=== PATIENT | male | born 1980 | race Caucasian/White ===

== ENCOUNTER 2019-09-23 18:25 | Emergency (ER) | payer SELFPAY ==
[2019-09-23] MEDS ORDERED: Ketorolac Tromethamine 30 MG/ML VIAL ONE (18:52)
[2019-09-23 19:12] LABS: ALT (SGPT) 31 U/L (8-55); AST (SGOT) 29 U/L (5-34); Acetaminophen Less than 6.0 mcg/mL (10.0-30.0); Albumin 4.7 g/dL (3.5-5.0); Alcohol 211 mg/dL (Less than 10); Alkaline Phosphatase 80 U/L (40-110); Anion Gap 18 mmol/L (10-20); BUN (Urea Nitrogen) 7 mg/dL (8.9-20.6); Bilirubin, Total 0.4 mg/dL (0.2-1.2); Calc. Creatinine Clearance 0 mL/min (70-130); Calcium 9.3 mg/dL (7.8-10.44); Carbon Dioxide 22 mmol/L (22-29); Chloride 109 mmol/L (98-107); Estimated GFR-MDRD 74; Globulin 2.8 g/dL (2.4-3.5); Glucose 98 mg/dL (70-105); Potassium 4.1 mmol/L (3.5-5.1); Protein, Total 7.5 g/dL (6.0-8.3); Salicylate Less than 8.0 mg/dL (15.0-30.0); Sodium 145 mmol/L (136-145)
[2019-09-23 19:17] LABS: #Basophils 0.1 thou/uL (0.0-0.2); #Eosinphils 0.3 thou/uL (0.0-0.7); #Lymphocytes 1.7 thou/uL (1.20-3.40); #Monocytes 0.5 thou/uL (0.11-0.59); #Neutrophils 2.3 thou/uL (1.40-6.50); %Basophils 1.9 % (0.0-1.0); %Eosinophils 5.9 % (0.0-10.0); %Monocytes 10.9 % (0.0-10.0); %Neutrophils 47.3 % (42.0-75.0); Hemoglobin 17.4 g/dL (14.0-18.0); Mean Corpuscular HGB CONC 33.8 g/dL (32.0-36.0); Mean Corpuscular Volume 97.9 fL (78.0-98.0); Platelet Count 208 thou/uL (130-400); RBC Distribution Width 11.7 % (11.5-14.5); Red Blood Cell (RBC) Count 5.25 mill/uL (4.70-6.10); White Blood Cell (WBC) Count 4.8 thou/uL (4.8-10.8)
[2019-09-23 19:39] LABS: Bilirubin Negative (Negative); Blood, Urine Negative (Negative); Clarity Clear (Clear); Glucose, Urine (Dipstick) Negative (Negative); Leukocyte Negative (Negative); Nitrite Negative (Negative); Protein, Urine (Dipstick) Negative (Neg-Trace); Urobilinogen 0.2 mg/dL (Less than 2)
--- NOTE | 2019-09-23 21:09 | CT ---
CT OF THE BRAIN WITHOUT CONTRAST: 09/23/19 The ventricles are normal in size with no shift. No intracranial mass, edema, or bleeding was seen. T here is normal velásquez-white distinction. The calvarium appears normal. There is substantial mucosa thic kening in the ethmoid air cells bilaterally and the tops of the maxillary sinuses bilaterally. The ma stoid air cells are clear. IMPRESSION: 1. No acute intracranial findings. 2. Ethmoid and maxillary sinusitis. POS: HOME
== END 2019-09-23 19:40 | disposition home or self-care (01) ==
LOC: BURERS 18:25
DX: R56.9 Unspecified convulsions (principal); F10.129 Alcohol abuse with intoxication, unspecified; J06.9 Acute upper respiratory infection, unspecified; F17.210 Nicotine dependence, cigarettes, uncomplicated
CPT/HCPCS: 70450; 80053; 80307; 81003; 83605; 84443; 85025; 87804; 96374; J1885

== ENCOUNTER 2022-02-11 06:27 | Emergency (ER) | payer BC, SELFPAY ==
[2022-02-11] MEDS ORDERED: Ketorolac Tromethamine 60 MG/2 ML VIAL ONE (06:55)
== END 2022-02-11 07:07 | disposition home or self-care (01) ==
LOC: BURERS 06:27
DX: S39.012A Strain of muscle, fascia and tendon of lower back, initial encounter (principal); F17.210 Nicotine dependence, cigarettes, uncomplicated; X50.0XXA Overexertion from strenuous movement or load, initial encounter
CPT/HCPCS: 96372; 99283; J1885

== ENCOUNTER 2025-07-27 05:26 | Emergency (ER) | payer BC | END 2025-07-27 06:01 | disposition home or self-care (01) | LOC: BURERS 05:26 | DX: L84 Corns and callosities (principal); M79.671 Pain in right foot; F17.210 Nicotine dependence, cigarettes, uncomplicated | CPT/HCPCS: 99283 ==